=== PATIENT | female | born 1960 | race Caucasian/White ===

== ENCOUNTER 2018-09-24 16:24 | Emergency (ER) | payer BC, SELFPAY | END 2018-09-24 17:39 | disposition home or self-care (01) | LOC: ERS 16:24 | DX: M25.571 Pain in right ankle and joints of right foot (principal); M25.561 Pain in right knee; F17.210 Nicotine dependence, cigarettes, uncomplicated; W17.89XA Other fall from one level to another, initial encounter | CPT/HCPCS: 99283 ==

== ENCOUNTER 2020-07-11 11:55 | Outpatient (CLI) | payer BC ==
--- NOTE | 2020-07-11 12:19 | RAD ---
PA AND LATERAL VIEWS CHEST: HISTORY: Dyspnea. COMPARISON: 05/28/2017. FINDINGS: The heart size is normal. The lungs are expanded and clear. Prominent retrocardiac fat pad in the r ight costophrenic sulcus is again seen. There are mild degenerative changes in the spine. IMPRESSION: Stable exam. No acute process. POS: [facility]
== END 2020-07-11 11:56 | disposition home or self-care (01) ==
LOC: BICRAD 11:55
PROVIDERS: ATTEND Internal Medicine Critical Care Medicine
DX: R06.00 Dyspnea, unspecified (principal)
CPT/HCPCS: 71046

== ENCOUNTER 2020-07-25 13:50 | Inpatient (IN) | payer BC, OTHER ==
[2020-07-25 14:34] LABS: #Basophils 0.1 thou/uL (0.0-0.2); #Eosinphils 0.2 thou/uL (0.0-0.7); #Lymphocytes 3.5 thou/uL (1.20-3.40); #Monocytes 0.6 thou/uL (0.11-0.59); #Neutrophils 12.9 thou/uL (1.40-6.50); %Basophils 0.7 % (0.0-1.0); %Monocytes 3.3 % (0.0-10.0); %Neutrophils 74.9 % (42.0-75.0); Hemoglobin 19.4 g/dL (12.0-16.0); Mean Corpuscular HGB CONC 31.8 g/dL (32.0-36.0); Mean Corpuscular Hemoglobin 33.1 pg (27.0-31.0); Mean Platelet Volume 8.1 fL (7.4-10.4); Platelet Count 255 thou/uL (130-400); RBC Distribution Width 11.8 % (11.5-14.5); Red Blood Cell (RBC) Count 5.86 mill/uL (4.20-5.40); White Blood Cell (WBC) Count 17.2 thou/uL (4.8-10.8)
[2020-07-25] MEDS ORDERED: EPINEPHrine 1 MG/ML AMP ONE (14:35)
[2020-07-25] MEDS ORDERED: methylPREDNISolone Sod Succ/PF 125 MG/2 ML VIAL ONE ×2 (14:40→14:49)
[2020-07-25] MEDS ORDERED: Famotidine/PF 20 mg/2ml Vial ONE ×2 (14:40→14:49)
[2020-07-25] MEDS ORDERED: diphenhydrAMINE 50 MG/ML VIAL ONE ×2 (14:45→14:49)
[2020-07-25 14:50] LABS: ALT (SGPT) 160 U/L (8-55); AST (SGOT) 165 U/L (5-34); Albumin 4.7 g/dL (3.5-5.0); Alkaline Phosphatase 152 U/L (40-110); Anion Gap 23 mmol/L (10-20); BUN (Urea Nitrogen) 9 mg/dL (9.8-20.1); Bilirubin, Total 0.4 mg/dL (0.2-1.2); Calc. Creatinine Clearance 0 mL/min (70-130); Carbon Dioxide 21 mmol/L (22-29); Chloride 99 mmol/L (98-107); Estimated GFR-MDRD 48; Globulin 2.9 g/dL (2.4-3.5); Glucose 107 mg/dL (70-105); Lipase 22 U/L (8-78); Potassium 3.8 mmol/L (3.5-5.1); Protein, Total 7.6 g/dL (6.0-8.3); Sodium 139 mmol/L (136-145)
[2020-07-25 16:11] LABS: Acetaminophen Less than 6.0 mcg/mL (10.0-30.0); Alcohol 138 mg/dL (Less than 10); Salicylate Less than 8.0 mg/dL (15.0-30.0)
[2020-07-25] MEDS ORDERED: Iopamidol-370 76% 500 ML 1 ML ONE (16:22)
--- NOTE | 2020-07-25 16:23 | CT ---
CT OF THE ABDOMEN AND PELVIS WITH IV CONTRAST: 07/25/20 INDICATION: History of abdominal pain FINDINGS: There is prominent fatty infiltration of the liver. There is inflammatory stranding surrounding the pancreas with wall thickening involving the second an d third stage of the duodenum. There is an angiomyolipoma involving the inferior pole of the right kidney measuring 1.2 cm. Left kid rhea is normal appearing. The spleen is normal appearing. There are mild vascular calcifications involving the abdominal pelvic vasculature. Unopacified large and small bowel reveal no definite acute abnormality. There is scattered free fluid within the mesenteric leaves which is nonspecific. There is mild free fluid in the pelvis. No acute osseous abnormality is evident. There is scattered degenerative and osteoarthritic changes. IMPRESSION: 1. Findings of pancreatitis. There is edematous change involving the mesenteric leaves which may be reactive in nature. There appears to be fairly good opacification of the SMA and mesenteric vesse ls without evidence to suggest the presence of ischemic bowel. 2. Mild free fluid in the pelvis. 3. Prominent fatty liver. 4. Some reactive enteritis involving the duodenum likely related to adjacent pancreatitis. 5. 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 POS: [facility]
[2020-07-25] MEDS ORDERED: Cefepime 2 GM VIAL ONE (16:38)
[2020-07-25] MEDS ORDERED: Fentanyl 100 MCG/2 ML VIAL ONE (16:38)
[2020-07-25 17:52] LABS: Bilirubin Negative (Negative); Blood, Urine Negative (Negative); Clarity Clear (Clear); Glucose, Urine (Dipstick) Normal (Negative); Ketone, Urine Trace mg/dL (Negative); Leukocyte Negative Leu/uL (Negative); Nitrite Negative (Negative); Protein, Urine (Dipstick) Negative (Neg-Trace); Specific Gravity, Urine 1.019 (1.002-1.036); Urobilinogen Normal mg/dL (Less than 2)
[2020-07-25 18:02] LABS: Amphetamine Not Detected (NotDetected); Barbiturates Screen Not Detected (NotDetected); Benzodiazepine Screen Not Detected (NotDetected); Cocaine Metabolite Screen Not Detected (NotDetected); Medtox Reader # READER 1; Methadone Not Detected (NotDetected); Methamphetamine Not Detected (NotDetected); Opiate Screen Detected (NotDetected); Oxycodone Screen Not Detected (NotDetected); Phencyclidine (PCP) Not Detected (NotDetected); THC/Cannabinoid Screen Not Detected (NotDetected); Tricyclic Screen Not Detected (NotDetected)
[2020-07-25 18:03] LABS: Medtox Control Line Valid? VALID (VALID)
[2020-07-25 18:12] LABS: Lactic Acid 8.4 mmol/L (0.5-2.2)
[2020-07-25] MEDS ORDERED: Morphine 2 MG/ML VIAL SLOW IVP PRN (18:33)
[2020-07-25] MEDS ORDERED: Morphine 2 MG/ML SYRINGE ONE (18:34)
[2020-07-25] MEDS ORDERED: Ondansetron PF 4 MG/2 ML Vial IVP PRN (18:38)
--- NOTE | 2020-07-25 19:14 | ULT ---
RIGHT UPPER QUADRANT ULTRASOUND: 07/25/20 PROVIDED CLINICAL HISTORY: Pancreatitis. FINDINGS: The visualized portions of the pancreas appears sonographically normal. The liver appears echogenic compatible with fatty infiltration without evidence or mass or intrahepatic biliary ductal dilatation . The common duct is upper limits normal in size. On one of the provided images of the common duct, t here is an apparent echogenic 5 mm filling defect. The gallbladder demonstrates no stones, wall thickening, or pericholecystic fluid. Right kidney demon strates no hydronephrosis or concerning mass. Angiomyolipoma at the inferior pole is redemonstrated. IMPRESSION: 1. Questioned filling defect within the common duct. Consider MRCP for further evaluation as ind icated. 2. Fatty infiltration of the liver. POS: [facility]
--- NOTE | 2020-07-25 19:15 | PDOC.HHP ---
Hospitalist HPI - History of Present Illness N/V/D History of Present Illness: Ms. Brown is a 59F with a PMHx of alcohol induced pancreatitis, HTN, HLD, who presents with acute onset N/V/D. Pt reports that while at work this afternoon she tried some hummus and then 30 minutes later developed severe abdominal pain and explosive diarrhea. Pt felt lightheaded and dizzy had uncontrollable vomiting and diarrhea. Pt denies melena, hematochezia, or hemetemesis. Reports abdominal pain is worse in the LUQ but all over and feels sharp/cramping in nature. Endorsed SOB and feeling as though she was going to pass out. Pt states she was concerned it was an allergic reaction to humus which she had never tried before. No history of prior allergies or anaphylaxis. Denies recent travel, or abnormal foods. States she had nothing for breakfast except [employer] and yesterday only ate chicken soup. In regards to alcohol, pt reports that she only drinks on occasions, although admits to adding small amounts of liquor to her coffee. She denies any COVID exposures. Pt brought in by EMS and was found to be hypotensive to 80s systolic and tachycardic to 110s, afebrile. In the ED patient received epinephrine, IV fluids, Solu-Medrol. Work-up revealed lactic acid of 6.0 WBC of 17.2, H/H 19.4/60.9. LFTs with alk phos of 152, AST/ALT 165/160. Lipase 22. Alcohol level 138, salicylate less than 8 acetaminophen less than 6. CT abdomen pelvis showed findings of pancreatitis with edematous change. After discussion with radiologist, radiologist felt this to be likely bowel edema versus pancreatic edema. Vasculature patent, no evidence of ischemic bowel. Incidental angiomyolipoma of inferior pole of right kidney. Patient also given IV cefepime. Repeat vital signs 128/80, 90, 16, 99.3, 98% on room air. Hospitalist ROS - Review of Systems Constitutional: reports: weakness. denies: fever, chills, sweats, malaise, other Eyes: denies: pain, vision change, conjunctivae inflammation, eyelid inflammation, redness, other ENT: denies: ear pain, ear discharge, nose pain, nose discharge, nose congestion, mouth pain, mouth swelling, throat pain, throat swelling, other Respiratory: reports: SOB with excertion. denies: cough, dry, shortness of breath, hemoptysis, pleuritic pain, sputum, wheezing, other Cardiovascular: reports: light headedness. denies: chest pain, palpitations, orthopnea, paroxysmal noc. dyspnea, edema, other Gastrointestinal: reports: nausea, vomiting, abdominal pain, diarrhea. denies: constipation, melena, hematochezia, other Genitourinary: denies: dysuria, frequency, incontinence, hematuria, retention, other Musculoskeletal: denies: neck pain, shoulder pain, arm pain, back pain, hand pain, leg pain, foot pain, other Skin: denies: rash, lesions, kelly, bruising, other Neurological: denies: weakness, numbness, incoordination, change in speech, confusion, seizures, other - Medication Medications: Home medications include: 1. Ramipril 30 mg 2. clonidine 0.1 mg 3. Atorvastatin 20 mg Allergy to Benadryl listed in chart, however patient received Benadryl with no issues. Patient denies any drug allergies. Hospitalist History - Past Medical History Other Medical History: Medical history of hypertension, hyperlipidemia, alcohol induced pancreatitis - Past Surgical History Other Surgical History: Hysterectomy, right shoulder surgeries - Family History Other Family History: Family history of pancreatic cancer - Social History Smoking Status: Current every day smoker Tobacco Type: cigarettes Alcohol: reports: Occassional Drugs: reports: none Living Situation: With Family Activity level: independent ambulation - Exam General Appearance: NAD, awake alert Eye: PERRL, anicteric sclera ENT: normocephalic atraumatic, no oropharyngeal lesions, moist mucosa Neck: supple, symmetric, no JVD, no thyromegaly, no lymphadenopathy, no carotid bruit Heart: RRR, no murmur, no gallops, no rubs, normal peripheral pulses Respiratory: CTAB, no wheezes, no rales, no ronchi, normal chest expansion, no tachypnea, normal percussion Gastrointestinal: soft, non-tender, non-distended, normal bowel sounds, no palpable masses, no hepatomegaly, no splenomegaly, no bruit Extremities: no cyanosis, no clubbing, no edema Skin: normal turgor, no lesions, no rashes Neurological: cranial nerve grossly intact, normal sensation to touch, no weakness, no focal deficits, no new deficit Musculoskeletal: normal tone, normal strength, no muscle wasting Psychiatric: normal affect, normal behavior, A&O x 3 Hospitalist Results - Labs Result Diagrams: 07/27/20 03:34 07/27/20 03:34 Lab results: WBC 17.2 thou/uL (4.8-10.8) H 07/25/20 14:19 Hgb 19.4 g/dL (12.0-16.0) H 07/25/20 14:19 Hct 60.9 % (36.0-47.0) H* 07/25/20 14:19 MCV 104.0 fL (78.0-98.0) H 07/25/20 14:19 Plt Count 255 thou/uL (130-400) 07/25/20 14:19 Neutrophils % 74.9 % (42.0-75.0) 07/25/20 14:19 Sodium 139 mmol/L (136-145) 07/25/20 14:19 Potassium 3.8 mmol/L (3.5-5.1) 07/25/20 14:19 Chloride 99 mmol/L (98-107) 07/25/20 14:19 Carbon Dioxide 21 mmol/L (22-29) L 07/25/20 14:19 BUN 9 mg/dL (9.8-20.1) L 07/25/20 14:19 Creatinine 1.16 mg/dL (0.6-1.1) H 07/25/20 14:19 Glucose 107 mg/dL (70-105) H 07/25/20 14:19 Lactic Acid 8.4 mmol/L (0.5-2.2) H* 07/25/20 17:39 Calcium 10.0 mg/dL (7.8-10.44) 07/25/20 14:19 Total Bilirubin 0.4 mg/dL (0.2-1.2) 07/25/20 14:19 AST 165 U/L (5-34) H 07/25/20 14:19 ALT 160 U/L (8-55) H 07/25/20 14:19 Alkaline Phosphatase 152 U/L (40-110) H 07/25/20 14:19 Serum Total Protein 7.6 g/dL (6.0-8.3) 07/25/20 14:19 Albumin 4.7 g/dL (3.5-5.0) 07/25/20 14:19 Lipase 22 U/L (8-78) 07/25/20 14:19 Urine Ketones Trace mg/dL (Negative) A 07/25/20 17:30 Urine Blood Negative (Negative) 07/25/20 17:30 Urine Nitrite Negative (Negative) 07/25/20 17:30 Ur Leukocyte Esterase Negative Sridevi/uL (Negative) 07/25/20 17:30 Hospitalist H&P A/P - Problem (1) Acute pancreatitis Code(s): K85.90 - ACUTE PANCREATITIS WITHOUT NECROSIS OR INFECTION, UNSP Status: Acute Qualifiers: Pancreatitis type: alcohol induced (2) Septic shock Code(s): A41.9 - SEPSIS, UNSPECIFIED ORGANISM; R65.21 - SEVERE SEPSIS WITH SEPTIC SHOCK Status: Acute (3) Alcohol dependence Code(s): F10.20 - ALCOHOL DEPENDENCE, UNCOMPLICATED Status: Acute (4) Acute diarrhea Code(s): R19.7 - DIARRHEA, UNSPECIFIED Status: Acute (5) Hypertension Code(s): I10 - ESSENTIAL (PRIMARY) HYPERTENSION Status: Chronic Qualifiers: Hypertension type: essential hypertension Qualified Code(s): I10 - Essential (primary) hypertension (6) Hyperlipidemia Code(s): E78.5 - HYPERLIPIDEMIA, UNSPECIFIED Status: Chronic - Plan Plan: Acute pancreatitis: 59-year-old female with past medical history of alcohol induced pancreatitis, hypertension, hyperlipidemia who presented to the ED in an acute state of shock after severe episode of nausea/vomiting/diarrhea. CT abdomen showed signs of pancreatitis and surrounding pancreatic/bowel edema. Lipase 22, however with chronic pancreatitis. AST/ALT 165/160, alk phos 152, T bili 0.4 severe abdomin al pain. Patient reports alcohol consumption earlier today. Plan: -Aggressive IVF with LR at 250 cc/h -N.p.o., may transition to clears in a.m. -Right upper quadrant ultrasound -Triglycerides -Morphine for pain control Septic/Distributive shock with lactic acidosis: Patient presented hypotensive, tachycardic, with lactic acid of 6.0, increasing to 8.6. Initial suspicion for hummus allergy, so patient received epinephrine, Solu-Medrol. After IVF resuscitation patient's pressure improved to 120 systolic. WBC elevated to 17.2, however hemoconcentrated. Patient afebrile. Chest x-ray no acute findings. UA negative. Suspect acute diarrheal symptoms as cause for patient's septic/hypovolemic shock. Low suspicion for anaphylactic shock. CT abdomen showed signs of pancreatitis. Radiologist felt scan showed signs of severe bowel edema. Patient started on IV cefepime in ED. Plan: -Trend lactic acid, WBC, fever curve -IV fluids -IV cefepime, IV Flagyl -Continuous monitoring Acute diarrhea: Patient presented with acute onset of explosive diarrhea approximately 30 minutes after eating hummus at lunchtime. Severe nausea, vomiting. Denies hematochezia, melena, hematemesis. No recent antibiotic use. Denies recent travel, dietary indiscretion. CT abdomen showed sounds of bowel edema, and reactive enteritis. Will cover patient for GI causes of sepsis. Plan: -Stool studies, C. difficile toxin -CRP, fecal lactoferrin -Continue IV cefepime, IV Flagyl Acute kidney injury: Patient with mild SELENA, BUN/CR 9/1.16. Guadalupe secondary to GI losses. Plan: -Trend kidney function -IV fluids -Avoid nephrotoxic agents EtOH dependence: History of alcohol abuse pancreatitis, and alcohol abuse. Patient reports that she only drinks alcohol on special occasions, however upon further questioning patient admits to drinking a few times per week Baileys in her morning coffee. Patient reports last alcohol use was this afternoon at lunchtime. Denies history of withdrawals, seizures, admissions for alcohol withdrawal. Plan: -ASE protocol -Magnesium -Thiamine, vitamin B12 Hypertension: History of hypertension on home ramipril 30 mg. Plan: -Hold home ramipril in setting of shock DVT prophylaxis: SQ heparin Full code: Patient named her as surrogate medical decision-maker Case discussed with attending physician Dr. Villavicencio
[2020-07-25 19:24] LABS: CRP (Inflammatory) 0.95 mg/dL (= or < 0.5); Magnesium 1.9 mg/dL (1.6-2.6); Phosphorus 4.2 mg/dL (2.3-4.7)
[2020-07-25] MEDS: Morphine 4 MG/ML VIAL SLOW IVP PRN (20:41)
[2020-07-25] MEDS: Lactated Ringer's 1,000 ML IV SCH ×2 (20:42→23:23)
[2020-07-25] MEDS: Cefepime 2 GM in Sodium Chloride 0.9% 100 ML IVPB SCH (21:20)
[2020-07-25] MEDS: Heparin 5,000 UNITS/ML VIAL SC SCH (21:20)
[2020-07-25] MEDS: metroNIDAZOLE 500 MG in Premix Bag 1 BAG IVPB SCH (21:23)
[2020-07-25 22:13] VITALS: BMI 26.5
[2020-07-25 23:08] LABS: Lactic Acid 0.9 mmol/L (0.5-2.2)
[2020-07-26] MEDS: Lactated Ringer's 1,000 ML IV SCH ×7 (00:38→22:16)
[2020-07-26] MEDS: Morphine 4 MG/ML VIAL SLOW IVP PRN ×6 (00:38→21:15)
[2020-07-26 04:01] LABS: #Lymphocytes 1.1 thou/uL (1.20-3.40); #Monocytes 0.1 thou/uL (0.11-0.59); #Neutrophils 7.6 thou/uL (1.40-6.50); %Basophils 0.1 % (0.0-1.0); %Eosinophils 0.1 % (0.0-10.0); %Lymphocytes 12.2 % (21.0-51.0); %Monocytes 0.8 % (0.0-10.0); %Neutrophils 86.8 % (42.0-75.0); Hemoglobin 13.3 g/dL (12.0-16.0); Mean Corpuscular HGB CONC 32.8 g/dL (32.0-36.0); Mean Corpuscular Hemoglobin 33.8 pg (27.0-31.0); Mean Platelet Volume 8.2 fL (7.4-10.4); Platelet Count 145 thou/uL (130-400); RBC Distribution Width 11.6 % (11.5-14.5); Red Blood Cell (RBC) Count 3.93 mill/uL (4.20-5.40); White Blood Cell (WBC) Count 8.7 thou/uL (4.8-10.8)
[2020-07-26 04:07] LABS: ALT (SGPT) 118 U/L (8-55); AST (SGOT) 111 U/L (5-34); Albumin 3.7 g/dL (3.5-5.0); Alkaline Phosphatase 107 U/L (40-110); Bilirubin, Direct 0.2 mg/dL (0.1-0.3); Bilirubin, Total 0.3 mg/dL (0.2-1.2); Protein, Total 5.8 g/dL (6.0-8.3)
[2020-07-26 04:12] LABS: ALT (SGPT) 118 U/L (8-55); AST (SGOT) 112 U/L (5-34); Albumin 3.7 g/dL (3.5-5.0); Alkaline Phosphatase 105 U/L (40-110); Anion Gap 16 mmol/L (10-20); BUN (Urea Nitrogen) 8 mg/dL (9.8-20.1); Bilirubin, Total 0.3 mg/dL (0.2-1.2); Calc. Creatinine Clearance 112 mL/min (70-130); Calcium 8.4 mg/dL (7.8-10.44); Carbon Dioxide 24 mmol/L (22-29); Chloride 101 mmol/L (98-107); Estimated GFR-MDRD Greater than 90; Globulin 2.1 g/dL (2.4-3.5); Glucose 132 mg/dL (70-105); Potassium 4.3 mmol/L (3.5-5.1); Protein, Total 5.8 g/dL (6.0-8.3); Sodium 137 mmol/L (136-145)
[2020-07-26] MEDS: Cefepime 2 GM in Sodium Chloride 0.9% 100 ML IVPB SCH ×3 (06:01→21:05)
[2020-07-26] MEDS: metroNIDAZOLE 500 MG in Premix Bag 1 BAG IVPB SCH ×3 (06:02→21:12)
[2020-07-26] MEDS ORDERED: Magnevist 469MG/ML 20 ML VIAL ONE (09:41)
[2020-07-26] MEDS: Heparin 5,000 UNITS/ML VIAL SC SCH ×3 (10:43→21:06)
[2020-07-26 12:10] LABS: SARS-CoV-2 MS2 Positive; SARS-CoV-2 N Gene Negative; SARS-CoV-2 S Gene Negative; SARS-CoV-2 by NAA Not Detected (NotDetected); SARS-CoV-2 orf1ab Negative
--- NOTE | 2020-07-26 12:12 | PDOC.HOSPP ---
- Subjective Encounter Date: 07/26/20 Subjective: no nausea or fever - Objective Vital Signs & Weight: Vital Signs (12 hours) Temp Pulse Ox 07/26/20 11:15 96.4 F L 07/26/20 07:28 97.6 F 07/26/20 07:25 100 07/26/20 03:39 97.4 F L Weight Weight 159 lb 8 oz Most Recent Monitor Data Heart Rate from ECG 67 NIBP 141/66 NIBP BP-Mean 91 Respiration from ECG 18 SpO2 98 I&O: 07/25/20 07/26/20 07/27/20 06:59 06:59 06:59 Intake Total 10 Output Total 600 Balance -590 Result Diagrams: 07/26/20 03:37 07/26/20 03:37 Hospitalist ROS - Medication Medications: Active Medications Generic Name Dose Route Start Last Admin Trade Name Freq PRN Reason Stop Dose Admin Heparin Sodium (Porcine) 5,000 units 07/25/20 21:00 07/26/20 10:43 Heparin 5,000 Units/Ml Vial SC 5,000 units TID MALINA Administration Metronidazole 500 mg/ Device 100 mls @ 100 mls/hr 07/25/20 22:00 07/26/20 06:02 IVPB 100 mls Q8HR MALINA Administration Cefepime HCl 2 gm/ Sodium 100 mls @ 200 mls/hr 07/25/20 22:00 07/26/20 06:01 Chloride IVPB 100 mls Q8HR MALINA Administration Lactated Ringer's 1,000 mls @ 200 mls/hr 07/26/20 07:45 07/26/20 10:42 Lactated Ringer's IV 1,000 mls .Q5H MALINA Administration Morphine Sulfate 4 mg 07/25/20 18:33 07/26/20 08:31 Morphine 4 Mg/Ml Vial SLOW IVP 4 mg Q4H PRN Administration Severe Pain (7-10) - Exam General Appearance: awake alert Eye: PERRL, anicteric sclera ENT: no oropharyngeal lesions, moist mucosa Neck: supple, no JVD Heart: RRR, no murmur Respiratory: no wheezes, no rales Gastrointestinal: soft, non-distended, normal bowel sounds Extremities: no cyanosis, no edema Neurological: cranial nerve grossly intact, no focal deficits Hosp A/P (1) Acute pancreatitis Code(s): K85.90 - ACUTE PANCREATITIS WITHOUT NECROSIS OR INFECTION, UNSP Status: Acute Qualifiers: Pancreatitis type: alcohol induced (2) Severe dehydration Code(s): E86.0 - DEHYDRATION Status: Acute (3) Alcohol abuse Code(s): F10.10 - ALCOHOL ABUSE, UNCOMPLICATED Status: Chronic (4) H/O chronic pancreatitis Code(s): Z87.19 - PERSONAL HISTORY OF OTHER DISEASES OF THE DIGESTIVE SYSTEM Status: Chronic (5) Hyperlipidemia Code(s): E78.5 - HYPERLIPIDEMIA, UNSPECIFIED Status: Chronic (6) Hypertension Code(s): I10 - ESSENTIAL (PRIMARY) HYPERTENSION Status: Chronic Qualifiers: Hypertension type: essential hypertension Qualified Code(s): I10 - Essential (primary) hypertension - Plan aggressive iv hydration mrcp results pending, usg showed ?5mm filling defect in cbd GI consultation continue above meds likely has alc hepatitis lipase is normal, has prior h/o recurrent pancreatitis sec to alc use tx to medical floor unlikely to have sepsis, await cultures
--- NOTE | 2020-07-26 12:24 | MRI ---
MRI ABDOMEN WITH AND WITHOUT CONTRAST: HISTORY: Pancreatitis. Common bile duct stone. COMPARISON: Ultrasound 07/25/2020. FINDINGS: No significant pleural effusion . There is small volume free fluid in the abdomen and pelvis. The c ommon bile duct is not dilated and only measures 5 mm. No choledocholithiasis. No cholelithiasis. No gallbladder wall thickening. There is relatively low insertion of the cystic duct. Moderate proximal small bowel wall thickening and edema. There is trace fluid around the pancreas. No hydronephrosis. There are multiple focal right-sided atrophy and scarring. There is a cyst of th e inferior pole right kidney. The aortic contour is nonaneurysmal. Mild reverse scoliosis thoracolumbar spine. IMPRESSION: 1. No choledocholithiasis or common bile duct dilatation. 2. No cholelithiasis or cholecystitis. 3. Small volume free fluid in the pelvis with thickened edematous small bowel suggesting an enteriti s. 4. Low-grade fluid around the pancreas may be reactive from the underlying enteritis and less likely sequelae of pancreatitis as the enhancement is normal. POS: [facility]
[2020-07-26] MEDS: Multivitamins, Adult 10 ML, Folic Acid 1 MG, Thiamine HCl 100 MG in Dextrose 5 %-0.45 %... IV SCH (13:19)
--- NOTE | 2020-07-26 17:29 | CON ---
DATE OF CONSULTATION: 07/26/2020 HISTORY OF PRESENT ILLNESS: Nakita Brown is a 60-year-old female, who apparently presented to the ER with shortness of breath, nausea, vomiting, and throat closing down. Symptoms started shortly after she ate some hummus. In the ER she was having significant shortness of breath, throat closing down. She just recently saw Dr. Dalton of Pulmonology in the office. X-ray was taken and was normal. She said she quit smoking 2 years ago when she was smoking up to half-a-pack a day and drinking several beers a day. She, yesterday, apparently might have had a beer. She has a history of pancreatitis and also develops abdominal pain. MEDICATIONS: Include; 1. Ramipril 10 mg a day. 2. Catapres 0.1. PAST MEDICAL HISTORY: 1. Hysterectomy. 2. Pancreatitis. 3. Left shoulder surgery. HOME MEDICINES: 1. Catapres 0.1. 2. Ramipril 30. 3. Lipitor 20. ALLERGIES: BENADRYL. 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 PHYSICAL EXAMINATION: VITAL SIGNS: Temperature 97.6, sats 100% on room air, blood pressure 141/66. CHEST: No wheezing. No crackles. CARDIAC: Normal S1, S2. No gallops. No murmurs. ABDOMEN: Soft. LABORATORY DATA: AST is elevated at 111, ALT at 118. Lactic acid 0.4. Plasma alcohol level is 138. IMPRESSION AND PLAN: 1. Nausea, vomiting, abdominal pain, angioedema, felt to be secondary to hummus. 2. Hypertension, former smoker, history of pancreatitis, abnormal liver profile, history of alcohol intake. Unclear what the cause of her reaction was, what caused all these multiple reactions. She clearly has an elevated alcohol level. She had a recent chest x-ray, which was negative. She has evidence of abnormal liver function profile. At this stage, plan is supportive care, NILAM even though she says there is no connection between the NILAM and the symptoms of angioedema. Eventually discontinue antibiotics, supportive care. We will follow. Consultation note, 70 minutes, 50% direct patient care. Job ID: [id number]
--- NOTE | 2020-07-26 19:00 | CON ---
DATE OF CONSULTATION: 07/26/2020 REASON FOR CONSULTATION: Possible pancreatitis, possible choledocholithiasis. HISTORY OF PRESENT ILLNESS: Nakita Brown is a 60-year-old woman who was admitted to the hospital yesterday evening with what appeared to be acute allergic reaction versus anaphylactic shock. She reports she had a prior reaction to sesame seeds in the past. She was doing just fine until yesterday afternoon. She ate some hummus and within 30 minutes she was having severe generalized abdominal pain, explosive diarrhea, nausea, and uncontrollable vomiting. There was no blood in the stool. She was short of breath. She felt that she was going to pass out. On initial presentation, she was hypotensive and tachycardic. Lactic acid was elevated to 6.0, and she had a leukocytosis to 17.2. Her alcohol level was 138. She received epinephrine and Benadryl and Solu-Medrol. A CT scan appeared to show findings of pancreatic edema as well as edema around the 2nd and 3rd portions of the duodenum. The vasculature was patent. Her lipase was completely normal at 22 but transaminases were mildly elevated in the 100s. With supportive care overnight, the patient is doing very well today. The abdominal pain has completely resolved. She is not having any nausea or further vomiting. There has been no further diarrhea either. Her vital signs have all normalized. She does have some persistent pain in the back, which is somewhat chronic as well as some pain with deep inspiration in the anterior chest. She had an MRCP this morning because of the possible pancreatitis and transaminase elevation as well as ultrasound having suggested a 5 mm filling defect in the common bile duct, but the MRCP is not showing any filling defect within the common bile duct, no gallstones, and the fluid around the pancreas appears more secondary to underlying enteritis. REVIEW OF SYSTEMS: Full review of systems including constitutional, head, eyes, ears, nose, throat, GI, , cardiovascular, respiratory, musculoskeletal, neurologic systems is negative except as noted in the HPI. PAST MEDICAL HISTORY: Pancreatitis two years ago, ongoing alcohol use, hypertension, hyperlipidemia, hysterectomy, right shoulder surgery. FAMILY HISTORY: Father and grandfather had pancreatic cancer. SOCIAL HISTORY: She smokes. She drinks alcohol most days. She had a couple of drinks yesterday morning prior to presentation. ALLERGIES: DIPHENHYDRAMINE IS LISTED AN ALLERGY ON HER CHART, BUT THIS IS QUESTIONABLE. OUTPATIENT MEDICATIONS: 1. Ramipril. 2. Clonidine. 3. Atorvastatin. PHYSICAL EXAMINATION: VITAL SIGNS: Temperature 96.4, heart rate 69, blood pressure 141/66, 100% oxygen saturation on room air. GENERAL: A 60-year-old woman, lying in bed comfortably, in no distress. MENTAL: Alert and fully oriented. Pleasant, conversational. EYES: No scleral icterus. Extraocular movements intact. ENT: Mucous membranes moist. No oral lesions. LYMPH: No submandibular or supraclavicular lymphadenopathy. THYROID: Nontender to palpation. HEART: Regular rate and rhythm. LUNGS: Clear to auscultation bilaterally. ABDOMEN: Bowel sounds are present. The abdomen is soft and nontender to palpation throughout. EXTREMITIES: No peripheral edema. VESSELS: Radial pulses 2+ bilaterally. NEUROLOGIC: Cranial nerves 2 through 12 intact bilaterally. No focal deficits. LABORATORY DATA: WBC initially 17.2, now down to 8.7; hemoglobin initially 19.4, now down to 13.3; platelets are 145. Sodium 137, potassium 4.3, BUN 8, creatinine 0.62, glucose 132. Total bilirubin 0.3, alkaline phosphatase 107, AST 111, ALT 118. Albumin 3.7. TSH 1.91. Urinalysis negative. Toxicology screen shows plasma alcohol level 138, negative salicylates and acetaminophen. The urine drug screen positive only for opiates. COVID PCR is negative. IMAGING STUDIES: Abdominal ultrasound performed yesterday showed no evidence of gallbladder thickening or gallstones, but the common bile duct was upper limits of normal and there was a possible 5 mm filling defect in the common duct. CT of the abdomen and pelvis from yesterday showed edematous changes involving the mesentery and inflammatory stranding involving the 2nd and 3rd stage of the duodenum as well as surrounding the pancreas, also 1.2 cm right kidney angiomyolipoma. There was no evidence of any ischemic changes. MRCP from earlier today demonstrates no evidence of choledocholithiasis, common bile duct dilation, cholelithiasis or cholecystitis. There is a small volume of free fluid in the pelvis with edematous small bowel suggesting enteritis. The pancreas enhances normally. ASSESSMENT AND PLAN: 1. Acute allergic versus anaphylactic reaction, clinically much improved. 2. Small bowel enteritis, likely secondary to acute allergic reaction. 3. Transaminase elevation, mild, likely secondary to ongoing alcohol use, but no evidence of significant hepatitis, no evidence of pancreatitis. This was an interesting presentation. Interestingly, she has a known prior reaction to sesame seeds, and now had a severe reaction after eating hummus yesterday. I think that the small bowel inflammatory changes possibly just represents an acute allergic response as part of her overall allergic/anaphylactic picture. Symptoms have already much improved. The MRCP actually does not show any evidence of pancreatitis and this correlates clinically with her lack of any ongoing GI symptoms and her normal lipase. The elevation in transaminases is not concerning for any biliary etiology, likely reflects daily alcohol use. Given that she really does not have pancreatitis, I think it is okay to try to advance her diet today, see how she does. If she is tolerating her diet this evening and tomorrow morning, then she could potentially be discharged from the hospital from a GI perspective. Job ID: [id number]
[2020-07-27] MEDS: Morphine 4 MG/ML VIAL SLOW IVP PRN ×3 (02:29→11:17)
[2020-07-27 04:10] LABS: #Lymphocytes 2.4 thou/uL (1.20-3.40); #Monocytes 0.5 thou/uL (0.11-0.59); #Neutrophils 4.7 thou/uL (1.40-6.50); %Basophils 0.5 % (0.0-1.0); %Eosinophils 0.3 % (0.0-10.0); %Lymphocytes 31.3 % (21.0-51.0); %Monocytes 6.7 % (0.0-10.0); %Neutrophils 61.2 % (42.0-75.0); Hemoglobin 12.2 g/dL (12.0-16.0); Mean Corpuscular HGB CONC 33.3 g/dL (32.0-36.0); Mean Corpuscular Hemoglobin 34.4 pg (27.0-31.0); Mean Platelet Volume 8.5 fL (7.4-10.4); Platelet Count 137 thou/uL (130-400); RBC Distribution Width 11.6 % (11.5-14.5); Red Blood Cell (RBC) Count 3.54 mill/uL (4.20-5.40); White Blood Cell (WBC) Count 7.6 thou/uL (4.8-10.8)
[2020-07-27 04:26] LABS: ALT (SGPT) 99 U/L (8-55); AST (SGOT) 77 U/L (5-34); Albumin 3.7 g/dL (3.5-5.0); Alkaline Phosphatase 101 U/L (40-110); Anion Gap 14 mmol/L (10-20); BUN (Urea Nitrogen) 10 mg/dL (9.8-20.1); Bilirubin, Total 0.2 mg/dL (0.2-1.2); Calc. Creatinine Clearance 110 mL/min (70-130); Calcium 8.5 mg/dL (7.8-10.44); Carbon Dioxide 28 mmol/L (22-29); Chloride 102 mmol/L (98-107); Estimated GFR-MDRD Greater than 90; Globulin 2.1 g/dL (2.4-3.5); Glucose 144 mg/dL (70-105); Potassium 3.6 mmol/L (3.5-5.1); Protein, Total 5.8 g/dL (6.0-8.3); Sodium 140 mmol/L (136-145)
[2020-07-27] MEDS: Cefepime 2 GM in Sodium Chloride 0.9% 100 ML IVPB SCH (05:08)
[2020-07-27] MEDS: metroNIDAZOLE 500 MG in Premix Bag 1 BAG IVPB SCH (05:10)
[2020-07-27] MEDS: Lactated Ringer's 1,000 ML IV SCH (05:12)
--- NOTE | 2020-07-27 09:04 | PRG ---
DATE OF SERVICE: 07/27/2020 SUBJECTIVE: Nakita Brown is a 60-year-old female. She is better this morning. She wants to go home. OBJECTIVE: VITAL SIGNS: Temperature 98, sats 100% on room air, blood pressure 159/98. No longer throat swelling. CHEST: No wheezing. No crackles. CARDIAC: Normal S1, S2. No gallops. ABDOMEN: No masses. LABORATORY DATA: Unremarkable. IMPRESSION: 1. Presumed angioedema secondary to eating hummus. 2. Hypertension, .. 3. Chronic pancreatitis. 4. History of alcohol intake. PLAN: Pulmonary fong, not much to offer. She has seen Dr. Dalton in our office. She can be discharged home any time. I may consider switching her ramipril and NILAM blood pressure medicine. Even though, the patient does not feel that was the cause of angioedema. Job ID: [id number]
[2020-07-27] MEDS: Multivitamins, Adult 10 ML, Folic Acid 1 MG, Thiamine HCl 100 MG in Dextrose 5 %-0.45 %... IV SCH (09:29)
[2020-07-27] MEDS: Heparin 5,000 UNITS/ML VIAL SC SCH (09:29)
[2020-07-27 11:31] VITALS: TEMP 97.4
--- NOTE | 2020-07-27 15:32 | DIS ---
DATE OF ADMISSION: 07/25/2020 DATE OF DISCHARGE: 07/27/2020 DISCHARGE DISPOSITION: To home. PRIMARY DISCHARGE DIAGNOSES: Acute on chronic pancreatitis, severe dehydration, alcohol abuse, history of chronic pancreatitis, dyslipidemia, and hypertension. PROCEDURES DONE DURING HOSPITALIZATION: CT of the abdomen and pelvis with IV contrast done showed findings suggestive of pancreatitis. There was edematous change involving mesenteric leaves, which may be reactive in nature. There is no evidence of ischemic bowel. Prominent fatty liver, some reactive enteritis involving the duodenum, likely related to adjacent pancreatitis. 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 MRCP abdomen done showed no choledocholithiasis or common bile duct dilatation. No cholelithiasis or cholecystitis. There is small volume free fluid in the pelvis with thickened edematous small bowel suggesting enteritis. Low-grade fluid around the pancreas may be reactive from underlying enteritis and less likely sequelae of pancreatitis. Right upper quadrant ultrasound done showed questionable filling defect within the common duct. There is echogenic 5-mm suspicious filling defect seen, which was not seen on the MRCP later. H and H 12 and 36, platelet count 137, MCV is 103, and white count of 7.6. Discharge AST 77, ALT 99, alkaline phosphatase 101, total bilirubin 0.2 on the day of discharge. Albumin is 3.7. TSH 1.91, triglycerides 150, lipase 22. Urine tox screen was positive for opiates. Plasma alcohol was 138 mg/dL. COVID-19 PCR was not detected on 07/25/2020. DISCHARGE MEDICATIONS: 1. Clonidine 0.1 mg p.o. at bedtime. 2. Lipitor 20 mg p.o. at bedtime. 3. Ramipril 30 mg p.o. daily no. ALLERGIES: TO DIPHENHYDRAMINE . DISCHARGE PLAN: The patient to follow up with her primary care physician, Dr. Camara in 1 week. BRIEF COURSE DURING HOSPITALIZATION: The patient initially got admitted on the with complaints of nausea, vomiting, diarrhea, and abdominal pain. The patient also revealed that she tried some hummus and 30 minutes later with onset of abdominal pain and diarrhea. She has also had prior history of chronic pancreatitis. In view of this history and initial suspicion for anaphylaxis, the patient was admitted to [facility]. She was given epinephrine, IV fluid, Solu-Medrol in the ER. She had severe dehydration with margination on arrival. The patient has had aggressive IV hydration done. Initially, IV antibiotics were placed for suspected sepsis, which was ruled out. The patient did not provide any stool sample as she did not have any diarrhea after hospitalization. No stool studies could be done because of above. Prior to discharge, she is tolerating oral solid diet. She was counseled with regard to alcohol abuse. She is hemodynamically stable and is wanting to go home today. Please note, I have seen and examined the patient on the day of discharge. Job ID: [id number]
--- NOTE | 2020-07-31 04:36 | PQF ---
CLINICAL DOCUMENTATION CLARIFICATION FORM: Dear :BONNY OLIVAREZ MD Date / Time: 07/31/2020 Please exercise your independent, professional judgment in responding to the clarification form. Clinical indicators are provided on the bottom of this form for your review Please check appropriate box(es) to clarify if the following diagnosis has been ruled in our ruled out: [ ] Ruled in distributive shock [ ] Continue to treat [ ] Resolved [ ] Ruled out distributive shock [ ] Improving [ ] Cannot rule out diagnosis [ ] Other diagnosis (Please specify if any) [ x] Unable to determine Physician Signature: Date/Time: For continuity of documentation, please document condition throughout progress notes and discharge summary. Thank You. To be completed by CDI/Coding staff for physician review: Present Clinical Indicators - Signs / Symptoms / Labs Results and Location in Medical Record [ x] Possible anaphylaxis, sidtributive shock(resolved) ED provider report on 07/27 [ x ] Found to be hypotensive to 80s systolic and tachycardiac to 110s, afebrile H&P on 07/25 [ x] Presented to the ED in an acute state of shock after severe episode of nausea/vomitting/diarrhea H&P on 07/25 [ x] Severe dehydration Hospital progress notes on 07/26 Present Risk Factors Results and Location in Medical Record [ x] Aged person 60 yrs H&P on 07/25 [ x ] dehydration Hospital progress notes on 07/26 [ ] [ ] Present Treatments Results and Location in Medical Record [ x ] Epinephrine 1mg Medication on 07/25 [ ] [ ] [ ] CDS/Product Development Director Signature: AAS Phone #: Date/Time: 07/31/2020 This is a permanent part of the Medical Record [facility]
== END 2020-07-27 12:22 | disposition home or self-care (01) | DRG 439 ==
LOC: EDBD 13:50 → ERS 13:50 → IMCU/EMU 17:36 → MERGE 17:36
PROVIDERS: ADMIT Internal Medicine; ATTEND Internal Medicine
DX: K85.90 Acute pancreatitis without necrosis or infection, unspecified (principal); N17.9 Acute kidney failure, unspecified; I10 Essential (primary) hypertension; E78.5 Hyperlipidemia, unspecified; F17.210 Nicotine dependence, cigarettes, uncomplicated; R19.7 Diarrhea, unspecified; F10.20 Alcohol dependence, uncomplicated; Z20.828 Contact with and (suspected) exposure to other viral communicable diseases; E86.0 Dehydration; Z90.710 Acquired absence of both cervix and uterus; Z87.891 Personal history of nicotine dependence; Z88.8 Allergy status to other drugs, medicaments and biological substances; Z79.899 Other long term (current) drug therapy; K52.9 Noninfective gastroenteritis and colitis, unspecified
CPT/HCPCS: 36415; 74177; 74183; 76705; 80053; 80306; 80307; 81003; 83605; 83690; 83735; 84100; 84443; 84478; 85025; 86140; 87040; 87086; 87635; 93005; 96361; 96365; 96372; 96375; A9579; J0171; J0692; J1200; J1644; J2270; J2930; J3010; J3411; J3490; J7042; Q9967; S0028; U0003